=== PATIENT | female | born 1970 | race Caucasian/White ===

== ENCOUNTER 2017-03-18 14:20 | Emergency (ER) | payer SELFPAY ==
[2017-03-18 15:19] LABS: #Eosinphils 0.2 thou/uL (0.0-0.7); #Lymphocytes 1.8 thou/uL (1.20-3.40); #Monocytes 0.5 thou/uL (0.11-0.59); #Neutrophils 5.4 thou/uL (1.40-6.50); %Basophils 0.2 % (0.0-1.0); %Eosinophils 2.2 % (0.0-10.0); %Lymphocytes 22.8 % (21.0-51.0); %Monocytes 6.3 % (0.0-10.0); %Neutrophils 68.5 % (42.0-75.0); Hemoglobin 13.4 g/dL (12.0-16.0); Mean Corpuscular HGB CONC 33.4 g/dL (32.0-36.0); Mean Corpuscular Hemoglobin 29.4 pg (27.0-31.0); Mean Platelet Volume 7.6 fL (7.4-10.4); Platelet Count 281 thou/uL (130-400); RBC Distribution Width 13.3 % (11.5-14.5); Red Blood Cell (RBC) Count 4.56 mill/uL (4.20-5.40); White Blood Cell (WBC) Count 7.9 thou/uL (4.8-10.8)
[2017-03-18 15:22] LABS: Bilirubin Negative (Negative); Blood, Urine Negative (Negative); Clarity CLEAR (Clear); Glucose, Urine (Dipstick) Negative (Negative); Leukocyte Negative (Negative); Nitrite Negative (Negative); Protein, Urine (Dipstick) Negative (Neg-Trace); Specific Gravity, Urine 1.016 (1.002-1.036); Urobilinogen 0.2 mg/dL (0.2-1.0); pH, Urine 6.5 (5.0-9.0)
[2017-03-18 15:23] LABS: Pregnancy Test - Urine (BHCG) Negative (Negative); Pregu Control Background? CLEAR/WHITE (CLR/WHITE); Pregu Control Bar Appear? YES (CONTROL BAR); Specific Gravity 1.016 (1.002-1.036)
[2017-03-18 15:41] LABS: ALT (SGPT) 12 U/L (8-55); AST (SGOT) 16 U/L (5-34); Albumin 3.6 g/dL (3.5-5.0); Alkaline Phosphatase 69 U/L (40-150); Anion Gap 10 mmol/L (10-20); BUN (Urea Nitrogen) 12 mg/dL (7.0-18.7); Bilirubin, Total 0.3 mg/dL (0.2-1.2); Calc. Creatinine Clearance 0 mL/min (70-130); Calcium 8.6 mg/dL (7.8-10.44); Carbon Dioxide 27 mmol/L (22-29); Chloride 103 mmol/L (98-107); Estimated GFR-MDRD 70; Globulin 2.7 g/dL (2.4-3.5); Glucose 157 mg/dL (70-105); Protein, Total 6.3 g/dL (6.0-8.3); Sodium 136 mmol/L (136-145)
[2017-03-18] MEDS ORDERED: HYDROcodone/Acetaminophen 5/325 mg Tablet ONE (16:27)
--- NOTE | 2017-03-18 19:05 | ULT ---
PELVIC ULTRASOUND TRANSABDOMINAL AND ENDOVAGINAL ULTRASOUND OF THE PELVIS PERFORMED. 03/18/17 HISTORY: Pelvic pain. The uterus has a normal appearance. Uterine measurements recorded at 7.8 x 4.0 x 5.0 cm. Endometrial stripe measures 1 to 1.2 cm and is mildly prominent. Ovaries are identified. Small right ovarian cyst measures up to 2.0 cm. color doppler with spectral analysis demonstrates blood flow to b oth ovaries. No free fluid seen. IMPRESSION: 1. Small right ovarian cyst. 2. Mildly thickened endometrium. POS: [facility]
== END 2017-03-18 19:44 | disposition home or self-care (01) ==
LOC: ERS 14:20
DX: N83.201 Unspecified ovarian cyst, right side (principal); E03.9 Hypothyroidism, unspecified; I10 Essential (primary) hypertension; F41.9 Anxiety disorder, unspecified; F31.9 Bipolar disorder, unspecified; F43.10 Post-traumatic stress disorder, unspecified; Z79.899 Other long term (current) drug therapy
CPT/HCPCS: 36415; 76856; 80053; 81003; 81025; 85025

== ENCOUNTER 2018-06-19 17:33 | Emergency (ER) | payer BC, SELFPAY ==
--- NOTE | 2018-06-19 18:08 | RAD ---
Exam:4 views left elbow HISTORY: Trauma. Pain. COMPARISON: None FINDINGS: No fracture. No cortical irregularity. Joint spaces are preserved. No malalignment. No joint effusion. IMPRESSION: No fracture.
[2018-06-19] MEDS ORDERED: Ibuprofen 800 MG TAB ONE (18:19)
== END 2018-06-19 18:25 | disposition home or self-care (01) ==
LOC: SCSER 17:33
DX: M25.522 Pain in left elbow (principal); I10 Essential (primary) hypertension; E03.9 Hypothyroidism, unspecified; F31.9 Bipolar disorder, unspecified; F41.9 Anxiety disorder, unspecified; F43.10 Post-traumatic stress disorder, unspecified; Z72.0 Tobacco use; W22.8XXA Striking against or struck by other objects, initial encounter

== ENCOUNTER 2022-07-28 20:07 | Emergency (ER) | payer SELFPAY ==
[2022-07-28] MEDS ORDERED: Ibuprofen 200 MG TAB ONE (20:29)
[2022-07-28] MEDS ORDERED: Acetaminophen 500 MG TAB ONE (20:29)
== END 2022-07-28 21:07 | disposition home or self-care (01) ==
LOC: ERS 20:07
DX: M79.641 Pain in right hand (principal); E03.9 Hypothyroidism, unspecified; I10 Essential (primary) hypertension; E11.9 Type 2 diabetes mellitus without complications; W22.8XXA Striking against or struck by other objects, initial encounter